=== PATIENT | male | born 1975 | race Caucasian/White ===

== ENCOUNTER 2024-06-29 07:51 | Day surgery (SDC) | payer BC ==
[2024-06-29] MEDS ORDERED: Propofol 200 MG/20 ML SDV IV ONE (07:52)
[2024-06-29] MEDS ORDERED: Lidocaine 2% 100 MG/5 ML Syringe IVPUSH ONE (07:52)
[2024-06-29] MEDS ORDERED: Midazolam 1 MG/ML 2 ML SDV IV ONE (07:52)
[2024-06-29] MEDS ORDERED: Ketamine 500 mg/10 ML MDV IV ONE (07:52)
[2024-06-29] MEDS ORDERED: Sodium Chloride 0.9% 10 ML Syringe FLUSH PRN (08:00)
[2024-06-29] MEDS: Lactated Ringers 1,000 ML IV SCH (08:38)
[2024-06-29] MEDS: Simethicone Drops 40 MG/0.6 ML 30 ML Bottle ONE (10:08)
== END 2024-06-29 11:58 | disposition home or self-care (01) ==
LOC: FB.SDS 07:51
PROVIDERS: ATTEND Surgery
DX: Z12.11 Encounter for screening for malignant neoplasm of colon (principal); D12.6 Benign neoplasm of colon, unspecified; K57.30 Diverticulosis of large intestine without perforation or abscess without bleeding; Z80.0 Family history of malignant neoplasm of digestive organs
CPT/HCPCS: 45385; 88305; 93005; A9270; J2250; J2704; J3490; J7120; 00811; 93010